=== PATIENT | male | born 1995 | race Two or more races ===

== ENCOUNTER 2020-12-03 10:40 | Emergency (ER) | payer MEDICAID, OTHER ==
[~2020-12-03] VITALS: Ht 170.2 cm; Wt 59.0 kg
[2020-12-03 12:10] VITALS: BP 147/90
[2020-12-03] MEDS ORDERED: TETANUS-DIPTH-ACEL PERTUSSIS 0.5ML SYR Tdap IM ONE (12:45)
[2020-12-03] MEDS ORDERED: traMADol HCL 50 MG TAB PO ONE (12:45)
== END 2020-12-03 14:16 | disposition home or self-care (01) ==
LOC: ER 10:40
DX: S01.01XA Laceration without foreign body of scalp, initial encounter (principal); S93.402A Sprain of unspecified ligament of left ankle, initial encounter; H10.32 Unspecified acute conjunctivitis, left eye; F12.10 Cannabis abuse, uncomplicated; F14.10 Cocaine abuse, uncomplicated; M54.2 Cervicalgia; R51.9 Headache, unspecified; V43.62XA Car passenger injured in collision with other type car in traffic accident, initial encounter; Y93.89 Activity, other specified; Y92.413 State road as the place of occurrence of the external cause; Y99.8 Other external cause status
CPT/HCPCS: 12002; 70450; 72100; 72125; 73590; 73630; 90471; 90715